=== PATIENT | male | born 1955 | race Asian ===

== ENCOUNTER → 2017-02-18 | Day surgery (SDC) | payer OTHER ==
[~2017-02-18] VITALS: Ht 177.8 cm; Wt 73.5 kg
[~2017-02-18] MED LIST: 0.9% Sodium Chloride 1,000 ML IV SCH; CHOL200078 PO; HYDR-4003 PO; LORA10CA9 PO; METF500T4 PO; POTA10TA19 PO; RANI300T4 PO; RED30POW PO; Sodium Chloride LOK Flush 10 mL Syringe IV PRN; TAMS0.4C98 PO; fentaNYL-PF 50 mCg/mL 2 mL Inj IVPUSH PRN
[2017-02-18 11:55] VITALS: BP 120/82; PULSE 77; RESP 17; O2SAT 99
[2017-02-18 12:51] VITALS: BP 114/70; PULSE 75; RESP 16; O2SAT 97
[2017-02-18 13:03] VITALS: BP 110/69; PULSE 80; RESP 16; O2SAT 99
[2017-02-18 13:05] VITALS: BP 119/77; PULSE 76; RESP 16; O2SAT 98
--- NOTE | 2017-02-19 09:41 | ENDO ---
[address] [address] ENDOSCOPY PROCEDURE PATIENT: BETTIE AVILEZ : 1955 MR#: [id number] ADMIT: 02/18/2017 JOB ID: [id number] DATE OF SERVICE: 02/18/2017 TYPE OF OPERATION: 1. Esophagogastroduodenoscopy with biopsy. 2. Colonoscopy with biopsy. PREOPERATIVE DIAGNOSIS(ES): Current guaiac positive. POSTOPERATIVE DIAGNOSIS: 1. Normal upper endoscopy, status post biopsy. 2. Polypoid like mass seen at 23 cm from the anus at the rectosigmoid junction, status post biopsy and gastrointestinal spot tattoo. ANESTHESIA: 1. Fentanyl 100 mcg. 2. Versed 5 mg IV administered. COMPLICATIONS: None. BLOOD LOSS: Minimal. DESCRIPTION OF PROCEDURE: After risks and benefits explained to the patient, informed consent was obtained. After anesthesia administered, an upper endoscope was the inserted in the mouth, intubated into the esophagus, stomach, second portion of duodenum. Mucosa carefully examined. After procedure was done, the scope withdrawn and procedure terminated. FINDINGS: Upon inspection of the esophagus, esophagus appeared normal without masses, ulcers or lesions. Z-line located at 40 cm from incisors. Upon entering the stomach, the stomach also appeared normal without masses, ulcers or lesions. Retroflexion was normal. Duodenal bulb, first and second portion normal. Biopsies taken at the antrum, body and distal esophagus. Upon inspection of the anus, no masses, hemorrhoids, ulcers or fissures are seen throughout the entire examination. There was a polypoid like mass seen at 23 cm from the anus which was biopsied at the GI spot and then GI spot tattoo was deployed. This is at the rectosigmoid junction. Retroflexion was normal. IMPRESSIONS: 1. Normal upper endoscopy with biopsy. 2. Polypoid like mass in the rectosigmoid junction, status post biopsy with gastrointestinal spot tattoo at 20 cm from the anus. RECOMMENDATION: Await pathology results. Follow up in GI clinic in two weeks.
--- NOTE | 2017-02-22 09:10 | PATH ---
SURGICAL PATHOLOGY Attending Physician:Jules Lazaro MD CASE STATUS: Signed Out PATIENT NAME: BETTIE AVILEZ PID: [id number] : 1955 DATE COLLECTED:02/18/2017 20:10 SPECIMEN: 1: Stomach, Antrum, Biopsy 2: Gastric, Biopsy 3: Esophagus, Biopsy 4: Colon, Biopsy CLINICAL HISTORY: GERD, POSITIVE FIT TEST 1). ANTRUM BIOPSY 2). GASTRIC BODY BIOPSY RULE OUT H PYLORI 3). DISTAL ESOPHAGUS BIOPSY 4). RECTAL SIGMOID MASS BIOPSY FINAL DIAGNOSIS: 1.ANTRUM, BIOPSY: -GASTRIC ANTRAL-TYPE MUCOSA WITH CHRONIC ACTIVE HELICOBACTER PYLORI GASTRITIS (PENDING IMMUNOHISTOCHEMISTRY). -Negative for intestinal metaplasia. -Negative for dysplasia and malignancy. 2.GASTRIC BODY BIOPSY: -GASTRIC BODY-TYPE MUCOSA WITH CHRONIC ACTIVE HELICOBACTER PYLORI GASTRITIS (PENDING IMMUNOHISTOCHEMISTRY). -Negative for intestinal metaplasia. -Negative for dysplasia and malignancy. 3.DISTAL ESOPHAGUS, BIOPSY: -SQUAMOUS MUCOSA WITH NO DIAGNOSTIC ABNORMALITY. -Intraepithelial eosinophils are not increased. -Negative for dysplasia and malignancy. 4.RECTAL SIGMOID MASS, BIOPSY: -INVASIVE ADENOCARCINOMA, MODERATELY DIFFERENTIATED. -SEE COMMENT. IHC10 C18.9 NOTE: Part 4 designated as Rectal sigmoid mass biopsy: MSI/MMR (CAP colorectal biomarker template)Immunohistochemistry testing for mismatch repair proteins. MLH1: Intact nuclear expression. MSH2: Intact nuclear expression. MSH6: Intact nuclear expression. PMS2: Intact nuclear expression. Background non-neoplastic tissue/internal control with intact nuclear expression. INTERPRETATION: No loss of nuclear expression of MMR protein by immunohistochemistry: low probability of microsatellite instability-high (MSI-H). * There are exceptions to the above IHC interpretations. These results should not be considered in isolation, and clinical correlation with genetic counseling is recommended to assess the need for germline testing. The preliminary findings on the Rectal sigmoid mass (part 4) were conveyed to [place], [employer] for Dr. Lazaro on February 21 2017 at 9:30 am. As part of a routine water quality analyst, Dr. Matt Wright and Dr. Lanette Barrios have also reviewed part 4 of this case and agree with the above interpretation. GROSS DESCRIPTION: The specimen is received in four formalin filled containers labeled with the patient's name. 1). The specimen is labeled "antrum" and consists of a 0.3 x 0.2 x 0.2 CM portion of tissue which is entirely submitted in cassette 1A. 2). The specimen is labeled "gastric body" and consists of a 0.2 x 0.2 x 0.2 CM portion of tissue which is entirely submitted in cassette 2A. 3). The specimen is labeled "distal esophagus" and consists of a 0.3 x 0.2 x 0.2 CM portion of tissue which is entirely submitted in cassette 3A. 4). The specimen is labeled "rectal sigmoid mass" and consists of 2 portions of tissue which aggregate to 0.3 x 0.2 x 0.2 CM. The specimen is entirely submitted in cassette 4A. 02/18/2017DC MICRO DESCRIPTION: MSI/MMR (CAP colorectal biomarker template)Immunohistochemistry testing for mismatch repair proteins. MLH1: Intact nuclear expression. MSH2: Intact nuclear expression. MSH6: Intact nuclear expression. PMS2: Intact nuclear expression. Background nonneoplastic tissue/internal control with intact nuclear expression. INTERPRETATION: No loss of nuclear expression of MMR protein by immunohistochemistry: low probability of microsatellite instability-high (MSI-H). * There are exceptions to the above IHC interpretations. These results should not be considered in isolation, and clinical correlation with genetic counseling is recommended to assess the need for germline testing. * This test was developed and its performance characteristics determined by [facility]. It has not been cleared or approved by the U.S. Food and Drug Administration. The FDA has determined that such clearance or approval is not necessary. This test is used for clinical purposes. It should not be regarded as investigational or for research. ICD-9 CODES: CPT CODES: 1: 11922, 05566, 57169, 26723, 24119, 40519 2: 66067, 78375 3: 89813 4: 94638 PROCEDURE/ADDENDA: Immunohistochemistry SPI Interpretation {Not Entered} Results-Comments This addendum is issued to report the results of Helicobacter pylori stain by immunohistochemistry. 1. & 2 Designated as "Antrum" and Gastric body" biopsies: An immunohistochemical stain was performed to evaluate for Helicobacter pylori microorganisms. The control stains show appropriate reactivity. RESULTS: 1. & 2. Positive for Helicobacter pylori microorganisms by immunohistochemistry. This test was developed and its performance characteristics determined by [facility]. It has not been cleared or approved by the [place]. Food and Drug Administration. The FDA has determined that such clearance or approval is not necessary. This test is used for clinical purposes. It should not be regarded as investigational or for research. Electronically Signed Out Neri Wellington MD Electronically Signed Out Neri Wellington MD [facility] [address], [place] [address] Technical component performed at [facility], [facility] [address], [place], [address]
== END | disposition home or self-care (01) ==
LOC: END 00:27
PROVIDERS: ATTEND Internal Medicine Gastroenterology
DX: C18.9 Malignant neoplasm of colon, unspecified (principal); K29.60 Other gastritis without bleeding; B96.81 Helicobacter pylori [H. pylori] as the cause of diseases classified elsewhere; R19.5 Other fecal abnormalities; K21.9 Gastro-esophageal reflux disease without esophagitis; E11.9 Type 2 diabetes mellitus without complications; Z79.84 Long term (current) use of oral hypoglycemic drugs
CPT/HCPCS: 43239; 45380; 99152; 99153; J2250; J3010; J7030